=== PATIENT | female | born 1980 | race Caucasian/White ===

== ENCOUNTER 2022-07-01 11:38 | Inpatient (IN) | payer MEDICAID ==
[~2022-07-01] VITALS: Ht 165.1 cm; Wt 66.0 kg
[~2022-07-01 11:38] MED LIST: DIVA500T53 PO; MELA5TAB40 PO; NALT50TA PO; OLAN5TAB94 PO; OMEG-135 PO
[2022-07-01] MEDS ORDERED: HALOPERIDOL LACTATE 5 MG/ML VIAL ONE (12:15)
[2022-07-01] MEDS ORDERED: DiphenhydrAMINE HCL 50 MG/ML VIAL ONE (12:15)
[2022-07-01] MEDS ORDERED: HALOPERIDOL LACTATE 5 MG/ML VIAL IM ONE (12:15)
[2022-07-01] MEDS ORDERED: LORazepam 2 MG/ML VIAL ONE (12:15)
[2022-07-01] MEDS ORDERED: DiphenhydrAMINE HCL 50 MG/ML VIAL IM ONE (12:15)
[2022-07-01] MEDS ORDERED: LORazepam 2 MG/ML VIAL IM ONE (12:15)
[2022-07-01 15:44] LABS: EOSINOPHILS % (AUTO) 1.8 % (1.0-6.0); HEMATOCRIT 35.5 % (36-46); HEMOGLOBIN 11.3 g/dL (12.0-16.0); LYMPHOCYTES # (AUTO) 1.4 K/uL (1.0-4.8); LYMPHOCYTES % (AUTO) 16.9 % (22.0-44.0); MEAN CORPUSCULAR HEMOGLOBIN 27.3 pg (26.0-34.0); MEAN CORPUSCULAR HGB CONC 31.9 G/dL (31.0-37.0); MEAN CORPUSCULAR VOLUME 86 fL (80-100); MONOCYTES # (AUTO) 0.7 K/uL (0.1-1.0); MONOCYTES % (AUTO) 8.2 % (2.0-9.0); NEUTROPHILS # (AUTO) 5.9 K/uL (1.8-7.7); NEUTROPHILS % (AUTO) 71.1 % (40.0-70.0); PLATELET COUNT (AUTO) 115 K/uL (150-450); RED BLOOD CELL COUNT(AUTO) 4.15 MIL/uL (4.00-5.20); RED CELL DISTRIBUTION WIDTH 14.5 % (11.5-14.5)
[2022-07-01 15:56] LABS: ANION GAP 9 mmol/L (8-16); CALCIUM, TOTAL 8.7 mg/dL (8.8-10.5); CARBON DIOXIDE 28 mmol/L (22-29); CHLORIDE 105 mmol/L (98-107); GLUCOSE,RANDOM 93 mg/dL (70-110); SODIUM SERUM 142 mmol/L (136-145); UREA NITROGEN, BLOOD 8 mg/dL (7-18)
[2022-07-01 15:57] LABS: GLOMERULAR FILTR. RATE CALC > 60 mL/min (>60)
[2022-07-01 16:02] LABS: ALANINE AMINOTRANSFERASE 25 U/L (12-78); ALBUMIN 3.6 g/dL (3.4-5.0); ALKALINE PHOSPHATASE 60 U/L (46-116); ASPARTATE AMINOTRANSFERASE 26 U/L (15-37); BILIRUBIN,TOTAL 0.4 mg/dL (0.1-1.0); TOTAL PROTEIN, SERUM 7.1 g/dL (6.4-8.2)
[2022-07-01] MEDS ORDERED: OLANZapine 5 MG RAPDIS TABLET PO PRN (19:15)
[2022-07-02 07:50] LABS: COVID AG,FIA SOURCE NASAL SWAB
[2022-07-02] MEDS: DIVALPROEX SODIUM 500 MG ER TABLET PO SCH (20:33)
[2022-07-03] MEDS: OLANZapine 5 MG RAPDIS TABLET PO SCH ×2 (09:00→16:28)
[2022-07-03] MEDS: DIVALPROEX SODIUM 500 MG ER TABLET PO SCH (20:26)
[2022-07-04 08:11] VITALS: BP 118/72
[2022-07-04] MEDS: OLANZapine 5 MG RAPDIS TABLET PO SCH ×2 (09:00→16:56)
[2022-07-04] MEDS ORDERED: PALIPERIDONE PALMITATE 234 MG/1.5 ML SYRINGE IM ONE (15:15)
[2022-07-04] MEDS ORDERED: PROMETHAZINE HCL 25 MG TABLET PO PRN (15:15)
[2022-07-04] MEDS ORDERED: GuaiFENesin/D-METHORPHAN [SUGAR-FREE] 200-20MG/10 ML SYRUP UDCUP PO PRN (15:15)
[2022-07-04] MEDS ORDERED: MAG HYDROX/AL HYDROX/SIMETH ES 30 ML SUSPENSION UDCUP PO PRN (15:15)
[2022-07-04] MEDS ORDERED: HydrOXYzine PAMOATE 50 MG CAPSULE PO PRN (15:15)
[2022-07-04] MEDS ORDERED: LOPERAMIDE HCL 2 MG CAPSULE PO PRN (15:15)
[2022-07-04] MEDS ORDERED: MAGNESIUM HYDROXIDE SUSPENSION 30 ML UDCUP PO PRN (15:15)
[2022-07-04] MEDS: THIAMINE 100 MG TABLET PO SCH (17:00)
[2022-07-04] MEDS: DIVALPROEX SODIUM 500 MG ER TABLET PO SCH (20:27)
[2022-07-05 08:23] VITALS: BP 116/78
[2022-07-05] MEDS: OLANZapine 5 MG RAPDIS TABLET PO SCH ×2 (09:00→16:57)
[2022-07-05] MEDS: FOLIC ACID 1 MG TABLET PO SCH (09:00)
[2022-07-05] MEDS: MULTIVITAMINS WITH MINERALS, THERAPEUTIC TABLET PO SCH (09:00)
[2022-07-05] MEDS: THIAMINE 100 MG TABLET PO SCH ×2 (09:00→16:57)
[2022-07-05] MEDS: DIVALPROEX SODIUM 500 MG ER TABLET PO SCH (21:00)
[2022-07-06] MEDS: FOLIC ACID 1 MG TABLET PO SCH (08:27)
[2022-07-06] MEDS: THIAMINE 100 MG TABLET PO SCH ×2 (08:27→16:22)
[2022-07-06] MEDS: MULTIVITAMINS WITH MINERALS, THERAPEUTIC TABLET PO SCH (08:27)
[2022-07-06] MEDS: OLANZapine 5 MG RAPDIS TABLET PO SCH ×2 (08:27→16:22)
[2022-07-06] MEDS: DIVALPROEX SODIUM 500 MG ER TABLET PO SCH (20:19)
[2022-07-07 08:05] VITALS: BP 114/69
[2022-07-07] MEDS: OLANZapine 5 MG RAPDIS TABLET PO SCH ×2 (08:06→16:58)
[2022-07-07] MEDS: MULTIVITAMINS WITH MINERALS, THERAPEUTIC TABLET PO SCH (08:06)
[2022-07-07] MEDS: FOLIC ACID 1 MG TABLET PO SCH (08:06)
[2022-07-07] MEDS: THIAMINE 100 MG TABLET PO SCH ×2 (08:06→16:58)
[2022-07-07 20:03] VITALS: BP 118/66
[2022-07-07] MEDS: DIVALPROEX SODIUM 500 MG ER TABLET PO SCH (21:00)
[2022-07-08] MEDS: MULTIVITAMINS WITH MINERALS, THERAPEUTIC TABLET PO SCH (09:00)
[2022-07-08] MEDS ORDERED: PALIPERIDONE PALMITATE 156 MG/ML SYRINGE IM ONE (09:00)
[2022-07-08] MEDS: OLANZapine 5 MG RAPDIS TABLET PO SCH ×4 (09:00→20:19)
[2022-07-08] MEDS: FOLIC ACID 1 MG TABLET PO SCH (09:00)
[2022-07-08] MEDS: THIAMINE 100 MG TABLET PO SCH ×2 (09:00→17:00)
[2022-07-08] MEDS ORDERED: HALOPERIDOL LACTATE 5 MG/ML VIAL IM PRN (10:15)
[2022-07-08] MEDS: DIVALPROEX SODIUM 250 MG ER TABLET PO SCH ×3 (12:37→20:19)
[2022-07-09 08:14] VITALS: BP 106/72
[2022-07-09] MEDS: DIVALPROEX SODIUM 250 MG ER TABLET PO SCH ×4 (08:30→20:29)
[2022-07-09] MEDS: OLANZapine 5 MG RAPDIS TABLET PO SCH ×4 (08:31→20:30)
[2022-07-09] MEDS: THIAMINE 100 MG TABLET PO SCH ×2 (09:00→16:23)
[2022-07-09] MEDS: MULTIVITAMINS WITH MINERALS, THERAPEUTIC TABLET PO SCH (09:00)
[2022-07-09] MEDS: FOLIC ACID 1 MG TABLET PO SCH (09:00)
[2022-07-10 08:28] VITALS: BP 103/72
[2022-07-10] MEDS: DIVALPROEX SODIUM 250 MG ER TABLET PO SCH ×4 (08:43→20:14)
[2022-07-10] MEDS: OLANZapine 5 MG RAPDIS TABLET PO SCH ×4 (08:43→20:14)
[2022-07-10] MEDS: FOLIC ACID 1 MG TABLET PO SCH (08:43)
[2022-07-10] MEDS: THIAMINE 100 MG TABLET PO SCH ×2 (08:43→16:45)
[2022-07-10] MEDS: MULTIVITAMINS WITH MINERALS, THERAPEUTIC TABLET PO SCH (08:43)
[2022-07-11 08:07] VITALS: BP 110/66
[2022-07-11] MEDS: DIVALPROEX SODIUM 250 MG ER TABLET PO SCH ×4 (08:25→20:08)
[2022-07-11] MEDS: THIAMINE 100 MG TABLET PO SCH ×2 (08:25→16:58)
[2022-07-11] MEDS: MULTIVITAMINS WITH MINERALS, THERAPEUTIC TABLET PO SCH (08:25)
[2022-07-11] MEDS: FOLIC ACID 1 MG TABLET PO SCH (08:25)
[2022-07-11] MEDS: OLANZapine 5 MG RAPDIS TABLET PO SCH ×4 (08:26→20:08)
[2022-07-12 05:41] LABS: GLUCOMETER DEV NAME(LOC) POC.BV
[2022-07-12] MEDS: THIAMINE 100 MG TABLET PO SCH ×2 (09:03→18:01)
[2022-07-12] MEDS: DIVALPROEX SODIUM 250 MG ER TABLET PO SCH ×4 (09:04→20:35)
[2022-07-12] MEDS: OLANZapine 5 MG RAPDIS TABLET PO SCH ×4 (09:04→20:35)
[2022-07-12] MEDS: MULTIVITAMINS WITH MINERALS, THERAPEUTIC TABLET PO SCH (09:04)
[2022-07-12] MEDS: FOLIC ACID 1 MG TABLET PO SCH (09:04)
[2022-07-12] MEDS: ZOLPIDEM TARTRATE 10 MG TABLET PO PRN (20:35)
[2022-07-13] MEDS: DIVALPROEX SODIUM 250 MG ER TABLET PO SCH ×4 (08:41→20:14)
[2022-07-13] MEDS: OLANZapine 5 MG RAPDIS TABLET PO SCH ×4 (08:41→20:14)
[2022-07-13] MEDS: FOLIC ACID 1 MG TABLET PO SCH (08:41)
[2022-07-13] MEDS: THIAMINE 100 MG TABLET PO SCH ×2 (08:41→16:15)
[2022-07-13] MEDS: MULTIVITAMINS WITH MINERALS, THERAPEUTIC TABLET PO SCH (08:41)
[2022-07-13] MEDS: LORazepam 2 MG TABLET PO PRN (16:15)
[2022-07-13] MEDS: ACETAMINOPHEN 325 MG TABLET PO PRN ×2 (16:16→21:15)
[2022-07-13 16:21] VITALS: BP 122/78
[2022-07-13 20:19] VITALS: BP 124/78
[2022-07-13] MEDS: ZOLPIDEM TARTRATE 10 MG TABLET PO PRN (21:14)
[2022-07-14] MEDS: FOLIC ACID 1 MG TABLET PO SCH (08:08)
[2022-07-14] MEDS: MULTIVITAMINS WITH MINERALS, THERAPEUTIC TABLET PO SCH (08:08)
[2022-07-14] MEDS: OLANZapine 5 MG RAPDIS TABLET PO SCH ×4 (08:09→20:07)
[2022-07-14] MEDS: THIAMINE 100 MG TABLET PO SCH (08:09)
[2022-07-14] MEDS: DIVALPROEX SODIUM 250 MG ER TABLET PO SCH ×2 (08:09→13:20)
[2022-07-14] MEDS: LORazepam 2 MG TABLET PO PRN ×2 (08:14→12:32)
[2022-07-14] MEDS: ACETAMINOPHEN 325 MG TABLET PO PRN (10:29)
[2022-07-14] MEDS: VALPROIC ACID 250 MG/5 ML SOLUTION UDCUP PO SCH ×2 (17:35→20:07)
[2022-07-14] MEDS: ZOLPIDEM TARTRATE 10 MG TABLET PO PRN (20:07)
[2022-07-14] MEDS ORDERED: TUBERCULIN, PURIFIED PROTEIN DERIVATIVE 5 TU/0.1 ML SYRINGE ID ONE (22:15)
[2022-07-15] MEDS: LORazepam 2 MG TABLET PO PRN (08:21)
[2022-07-15] MEDS: MULTIVITAMINS WITH MINERALS, THERAPEUTIC TABLET PO SCH (08:21)
[2022-07-15] MEDS: OLANZapine 5 MG RAPDIS TABLET PO SCH ×4 (08:21→20:02)
[2022-07-15] MEDS: VALPROIC ACID 250 MG/5 ML SOLUTION UDCUP PO SCH ×4 (08:22→20:02)
[2022-07-15] MEDS: ACETAMINOPHEN 325 MG TABLET PO PRN ×3 (10:12→20:39)
[2022-07-15] MEDS: ZOLPIDEM TARTRATE 10 MG TABLET PO PRN (20:38)
[2022-07-16] MEDS: OLANZapine 5 MG RAPDIS TABLET PO SCH ×4 (08:33→20:06)
[2022-07-16] MEDS: MULTIVITAMINS WITH MINERALS, THERAPEUTIC TABLET PO SCH (08:33)
[2022-07-16] MEDS: VALPROIC ACID 250 MG/5 ML SOLUTION UDCUP PO SCH ×4 (08:39→20:06)
[2022-07-16] MEDS: ACETAMINOPHEN 325 MG TABLET PO PRN ×3 (09:11→20:14)
[2022-07-16] MEDS: LORazepam 2 MG TABLET PO PRN (15:03)
[2022-07-16] MEDS: ZOLPIDEM TARTRATE 10 MG TABLET PO PRN (20:14)
[2022-07-17] MEDS: VALPROIC ACID 250 MG/5 ML SOLUTION UDCUP PO SCH ×4 (08:15→20:02)
[2022-07-17] MEDS: MULTIVITAMINS WITH MINERALS, THERAPEUTIC TABLET PO SCH (08:15)
[2022-07-17] MEDS: OLANZapine 5 MG RAPDIS TABLET PO SCH ×4 (08:15→20:02)
[2022-07-17] MEDS: ACETAMINOPHEN 325 MG TABLET PO PRN ×2 (16:11→20:16)
[2022-07-17] MEDS: ZOLPIDEM TARTRATE 10 MG TABLET PO PRN (20:03)
[2022-07-18] MEDS: ACETAMINOPHEN 325 MG TABLET PO PRN ×3 (07:58→20:17)
[2022-07-18] MEDS: OLANZapine 5 MG RAPDIS TABLET PO SCH ×4 (08:00→20:17)
[2022-07-18] MEDS: MULTIVITAMINS WITH MINERALS, THERAPEUTIC TABLET PO SCH (08:00)
[2022-07-18] MEDS: VALPROIC ACID 250 MG/5 ML SOLUTION UDCUP PO SCH ×4 (08:00→20:16)
[2022-07-18] MEDS: LORazepam 2 MG TABLET PO PRN (16:58)
[2022-07-18] MEDS: ZOLPIDEM TARTRATE 10 MG TABLET PO PRN (20:17)
[2022-07-19] MEDS: VALPROIC ACID 250 MG/5 ML SOLUTION UDCUP PO SCH ×4 (07:58→20:04)
[2022-07-19] MEDS: OLANZapine 5 MG RAPDIS TABLET PO SCH ×4 (07:58→20:05)
[2022-07-19] MEDS: MULTIVITAMINS WITH MINERALS, THERAPEUTIC TABLET PO SCH (07:58)
[2022-07-19 08:19] VITALS: BP 119/74
[2022-07-19] MEDS: ACETAMINOPHEN 325 MG TABLET PO PRN ×3 (09:06→18:09)
[2022-07-20 08:02] LABS: GLUCOMETER DEV NAME(LOC) POC.BV
[2022-07-20] MEDS: MULTIVITAMINS WITH MINERALS, THERAPEUTIC TABLET PO SCH (08:05)
[2022-07-20] MEDS: VALPROIC ACID 250 MG/5 ML SOLUTION UDCUP PO SCH ×4 (08:05→20:01)
[2022-07-20] MEDS: OLANZapine 5 MG RAPDIS TABLET PO SCH ×4 (08:05→20:05)
[2022-07-20] MEDS: LORazepam 2 MG TABLET PO PRN ×2 (08:06→16:04)
[2022-07-20] MEDS: ACETAMINOPHEN 325 MG TABLET PO PRN ×2 (09:09→16:04)
[2022-07-20] MEDS: IBUPROFEN 400 MG TABLET PO PRN (17:50)
[2022-07-20] MEDS: ZOLPIDEM TARTRATE 10 MG TABLET PO PRN (20:01)
[2022-07-21] MEDS: LORazepam 2 MG TABLET PO PRN ×2 (07:55→15:56)
[2022-07-21] MEDS: MULTIVITAMINS WITH MINERALS, THERAPEUTIC TABLET PO SCH (07:55)
[2022-07-21] MEDS: OLANZapine 5 MG RAPDIS TABLET PO SCH ×4 (07:57→21:49)
[2022-07-21] MEDS: VALPROIC ACID 250 MG/5 ML SOLUTION UDCUP PO SCH ×4 (07:58→20:57)
[2022-07-21] MEDS: IBUPROFEN 400 MG TABLET PO PRN ×2 (12:13→20:57)
[2022-07-21] MEDS: ACETAMINOPHEN 325 MG TABLET PO PRN (17:09)
[2022-07-21] MEDS: ZOLPIDEM TARTRATE 10 MG TABLET PO PRN (20:56)
[2022-07-22] MEDS: VALPROIC ACID 250 MG/5 ML SOLUTION UDCUP PO SCH ×4 (08:03→20:23)
[2022-07-22] MEDS: MULTIVITAMINS WITH MINERALS, THERAPEUTIC TABLET PO SCH (08:05)
[2022-07-22] MEDS: OLANZapine 5 MG RAPDIS TABLET PO SCH ×4 (08:05→20:23)
[2022-07-22] MEDS: LORazepam 2 MG TABLET PO PRN ×3 (08:47→20:24)
[2022-07-22] MEDS: IBUPROFEN 400 MG TABLET PO PRN ×2 (10:34→18:34)
[2022-07-22] MEDS: ACETAMINOPHEN 325 MG TABLET PO PRN (16:37)
[2022-07-22] MEDS: ZOLPIDEM TARTRATE 10 MG TABLET PO PRN (20:23)
[2022-07-23] MEDS: VALPROIC ACID 250 MG/5 ML SOLUTION UDCUP PO SCH ×4 (08:21→21:17)
[2022-07-23] MEDS: MULTIVITAMINS WITH MINERALS, THERAPEUTIC TABLET PO SCH (08:21)
[2022-07-23] MEDS: OLANZapine 5 MG RAPDIS TABLET PO SCH ×4 (08:22→21:17)
[2022-07-23] MEDS: IBUPROFEN 400 MG TABLET PO PRN ×2 (10:21→21:52)
[2022-07-23] MEDS: LORazepam 2 MG TABLET PO PRN ×2 (10:21→17:14)
[2022-07-23] MEDS: ACETAMINOPHEN 325 MG TABLET PO PRN ×2 (13:20→17:14)
[2022-07-23 20:29] VITALS: BP 118/63
[2022-07-23] MEDS: ZOLPIDEM TARTRATE 10 MG TABLET PO PRN (21:17)
[2022-07-24] MEDS: OLANZapine 5 MG RAPDIS TABLET PO SCH ×4 (07:57→21:18)
[2022-07-24] MEDS: MULTIVITAMINS WITH MINERALS, THERAPEUTIC TABLET PO SCH (07:57)
[2022-07-24] MEDS: VALPROIC ACID 250 MG/5 ML SOLUTION UDCUP PO SCH ×4 (07:57→21:18)
[2022-07-24] MEDS: LORazepam 2 MG TABLET PO PRN ×2 (07:57→16:32)
[2022-07-24] MEDS: IBUPROFEN 400 MG TABLET PO PRN (13:30)
[2022-07-24 21:26] VITALS: BP 118/70
[2022-07-24] MEDS: ACETAMINOPHEN 325 MG TABLET PO PRN (21:34)
[2022-07-25] MEDS: ZOLPIDEM TARTRATE 10 MG TABLET PO PRN ×2 (00:50→21:39)
[2022-07-25] MEDS: OLANZapine 5 MG RAPDIS TABLET PO SCH ×4 (08:08→20:22)
[2022-07-25] MEDS: MULTIVITAMINS WITH MINERALS, THERAPEUTIC TABLET PO SCH (08:08)
[2022-07-25] MEDS: VALPROIC ACID 250 MG/5 ML SOLUTION UDCUP PO SCH ×4 (08:08→20:22)
[2022-07-25] MEDS: ACETAMINOPHEN 325 MG TABLET PO PRN ×2 (08:11→18:31)
[2022-07-25] MEDS: LORazepam 2 MG TABLET PO PRN ×2 (08:40→15:54)
[2022-07-25] MEDS: IBUPROFEN 400 MG TABLET PO PRN (14:19)
[2022-07-26] MEDS: LORazepam 2 MG TABLET PO PRN ×3 (01:01→19:44)
[2022-07-26] MEDS: IBUPROFEN 400 MG TABLET PO PRN ×2 (01:02→16:26)
[2022-07-26] MEDS: OLANZapine 5 MG RAPDIS TABLET PO SCH ×4 (08:35→20:23)
[2022-07-26] MEDS: MULTIVITAMINS WITH MINERALS, THERAPEUTIC TABLET PO SCH (08:35)
[2022-07-26] MEDS: VALPROIC ACID 250 MG/5 ML SOLUTION UDCUP PO SCH ×4 (08:35→20:23)
[2022-07-26] MEDS: ACETAMINOPHEN 325 MG TABLET PO PRN (12:06)
[2022-07-26] MEDS: ZOLPIDEM TARTRATE 10 MG TABLET PO PRN (20:23)
[2022-07-27 08:08] LABS: GLUCOMETER DEV NAME(LOC) POC.BV
[2022-07-27] MEDS: MULTIVITAMINS WITH MINERALS, THERAPEUTIC TABLET PO SCH (08:10)
[2022-07-27] MEDS: VALPROIC ACID 250 MG/5 ML SOLUTION UDCUP PO SCH ×4 (08:10→20:02)
[2022-07-27] MEDS: OLANZapine 5 MG RAPDIS TABLET PO SCH ×4 (08:11→20:02)
[2022-07-27 08:13] VITALS: BP 118/69
[2022-07-27] MEDS: IBUPROFEN 400 MG TABLET PO PRN ×2 (08:55→19:50)
[2022-07-27] MEDS: LORazepam 2 MG TABLET PO PRN ×2 (08:55→15:56)
[2022-07-27] MEDS: ACETAMINOPHEN 325 MG TABLET PO PRN (17:13)
[2022-07-27] MEDS: ZOLPIDEM TARTRATE 10 MG TABLET PO PRN (20:01)
[2022-07-28] MEDS: VALPROIC ACID 250 MG/5 ML SOLUTION UDCUP PO SCH ×4 (08:04→20:29)
[2022-07-28] MEDS: MULTIVITAMINS WITH MINERALS, THERAPEUTIC TABLET PO SCH (08:04)
[2022-07-28] MEDS: LORazepam 2 MG TABLET PO PRN ×2 (08:04→17:11)
[2022-07-28] MEDS: OLANZapine 5 MG RAPDIS TABLET PO SCH ×4 (08:04→20:29)
[2022-07-28] MEDS: IBUPROFEN 400 MG TABLET PO PRN ×2 (08:04→20:41)
[2022-07-28] MEDS: ZOLPIDEM TARTRATE 10 MG TABLET PO PRN (20:29)
[2022-07-29] MEDS: OLANZapine 5 MG RAPDIS TABLET PO SCH ×4 (08:21→20:01)
[2022-07-29] MEDS: MULTIVITAMINS WITH MINERALS, THERAPEUTIC TABLET PO SCH (08:21)
[2022-07-29] MEDS: VALPROIC ACID 250 MG/5 ML SOLUTION UDCUP PO SCH ×4 (08:22→20:01)
[2022-07-29] MEDS: IBUPROFEN 400 MG TABLET PO PRN ×2 (08:22→17:27)
[2022-07-29] MEDS: LORazepam 2 MG TABLET PO PRN ×2 (08:22→20:01)
[2022-07-29] MEDS: ZOLPIDEM TARTRATE 10 MG TABLET PO PRN (21:31)
[2022-07-30] MEDS: LORazepam 2 MG TABLET PO PRN ×3 (00:09→20:28)
[2022-07-30] MEDS: MULTIVITAMINS WITH MINERALS, THERAPEUTIC TABLET PO SCH (08:19)
[2022-07-30] MEDS: OLANZapine 5 MG RAPDIS TABLET PO SCH ×4 (08:19→20:03)
[2022-07-30] MEDS: VALPROIC ACID 250 MG/5 ML SOLUTION UDCUP PO SCH ×4 (08:19→20:03)
[2022-07-30] MEDS: IBUPROFEN 400 MG TABLET PO PRN (13:30)
[2022-07-30] MEDS: ZOLPIDEM TARTRATE 10 MG TABLET PO PRN (21:57)
[2022-07-31] MEDS: OLANZapine 5 MG RAPDIS TABLET PO SCH ×4 (08:05→20:09)
[2022-07-31] MEDS: LORazepam 2 MG TABLET PO PRN ×2 (08:05→14:28)
[2022-07-31] MEDS: VALPROIC ACID 250 MG/5 ML SOLUTION UDCUP PO SCH ×4 (08:05→20:09)
[2022-07-31] MEDS: MULTIVITAMINS WITH MINERALS, THERAPEUTIC TABLET PO SCH (08:05)
[2022-07-31] MEDS: IBUPROFEN 400 MG TABLET PO PRN (19:37)
[2022-07-31] MEDS: ZOLPIDEM TARTRATE 10 MG TABLET PO PRN (20:29)
[2022-08-01 07:16] LABS: BASOPHILS % (AUTO) 1.1 % (0.0-2.0); EOSINOPHILS % (AUTO) 4.6 % (1.0-6.0); HEMATOCRIT 34.7 % (36-46); HEMOGLOBIN 11.2 g/dL (12.0-16.0); LYMPHOCYTES # (AUTO) 1.6 K/uL (1.0-4.8); LYMPHOCYTES % (AUTO) 16.5 % (22.0-44.0); MEAN CORPUSCULAR HEMOGLOBIN 27.6 pg (26.0-34.0); MEAN CORPUSCULAR HGB CONC 32.4 G/dL (31.0-37.0); MEAN CORPUSCULAR VOLUME 85 fL (80-100); MONOCYTES % (AUTO) 10.7 % (2.0-9.0); NEUTROPHILS # (AUTO) 6.5 K/uL (1.8-7.7); NEUTROPHILS % (AUTO) 67.1 % (40.0-70.0); RED BLOOD CELL COUNT(AUTO) 4.08 MIL/uL (4.00-5.20); RED CELL DISTRIBUTION WIDTH 15.3 % (11.5-14.5)
[2022-08-01 07:44] LABS: ALANINE AMINOTRANSFERASE 30 U/L (12-78); ALBUMIN 3.8 g/dL (3.4-5.0); ALKALINE PHOSPHATASE 50 U/L (46-116); ANION GAP 6 mmol/L (8-16); ASPARTATE AMINOTRANSFERASE 14 U/L (15-37); BILIRUBIN,TOTAL 0.2 mg/dL (0.1-1.0); CALCIUM, TOTAL 8.8 mg/dL (8.8-10.5); CARBON DIOXIDE 28 mmol/L (22-29); CHLORIDE 104 mmol/L (98-107); GLUCOSE,RANDOM 94 mg/dL (70-110); POTASSIUM 4.6 mmol/L (3.5-5.1); SODIUM SERUM 138 mmol/L (136-145); TOTAL PROTEIN, SERUM 7.1 g/dL (6.4-8.2); UREA NITROGEN, BLOOD 16 mg/dL (7-18); VALPROIC ACID 35 mcg/mL (50-100)
[2022-08-01 07:45] LABS: C-REACTIVE PROTEIN QUANT < 0.05 mg/dL (0.00-0.30); GLOMERULAR FILTR. RATE CALC > 60 mL/min (>60)
[2022-08-01] MEDS: VALPROIC ACID 250 MG/5 ML SOLUTION UDCUP PO SCH ×2 (08:00→12:11)
[2022-08-01] MEDS: OLANZapine 5 MG RAPDIS TABLET PO SCH ×4 (08:00→20:03)
[2022-08-01] MEDS: MULTIVITAMINS WITH MINERALS, THERAPEUTIC TABLET PO SCH (08:00)
[2022-08-01 08:02] LABS: PLATELET COUNT (AUTO) 58 K/uL (150-450)
[2022-08-01 08:03] LABS: PLATELET MORPHOLOGY COMMENT LARGE PLTS PRESENT
[2022-08-01] MEDS: LORazepam 2 MG TABLET PO PRN ×3 (08:23→21:30)
[2022-08-01 08:48] LABS: ERYTHROCYTE SEDIMENTATION RATE 8 MM/HR (0-20)
[2022-08-01] MEDS: IBUPROFEN 400 MG TABLET PO PRN ×2 (11:10→18:11)
[2022-08-01] MEDS: ACETAMINOPHEN 325 MG TABLET PO PRN ×2 (15:35→20:04)
[2022-08-01] MEDS ORDERED: VALPROIC ACID 250 MG/5 ML SOLUTION UDCUP PO SCH (17:00)
[2022-08-01] MEDS: ZOLPIDEM TARTRATE 10 MG TABLET PO PRN (20:03)
[2022-08-02] MEDS: OLANZapine 5 MG RAPDIS TABLET PO SCH ×4 (08:00→20:13)
[2022-08-02] MEDS: MULTIVITAMINS WITH MINERALS, THERAPEUTIC TABLET PO SCH (08:00)
[2022-08-02] MEDS: VALPROIC ACID 250 MG/5 ML SOLUTION UDCUP PO SCH ×3 (08:01→16:04)
[2022-08-02] MEDS: LORazepam 2 MG TABLET PO PRN ×2 (09:14→16:53)
[2022-08-02] MEDS: IBUPROFEN 400 MG TABLET PO PRN ×3 (12:59→22:30)
[2022-08-02] MEDS: ZOLPIDEM TARTRATE 10 MG TABLET PO PRN (21:07)
[2022-08-03 08:10] LABS: GLUCOMETER DEV NAME(LOC) POC.BV
[2022-08-03] MEDS: VALPROIC ACID 250 MG/5 ML SOLUTION UDCUP PO SCH ×3 (08:11→16:03)
[2022-08-03] MEDS: OLANZapine 5 MG RAPDIS TABLET PO SCH ×4 (08:11→20:01)
[2022-08-03] MEDS: MULTIVITAMINS WITH MINERALS, THERAPEUTIC TABLET PO SCH (08:11)
[2022-08-03 08:46] VITALS: BP 111/71
[2022-08-03] MEDS: LORazepam 2 MG TABLET PO PRN (11:07)
[2022-08-03] MEDS: IBUPROFEN 400 MG TABLET PO PRN (14:30)
[2022-08-03] MEDS: ZOLPIDEM TARTRATE 10 MG TABLET PO PRN (20:03)
[2022-08-04] MEDS: MULTIVITAMINS WITH MINERALS, THERAPEUTIC TABLET PO SCH (08:03)
[2022-08-04] MEDS: VALPROIC ACID 250 MG/5 ML SOLUTION UDCUP PO SCH ×3 (08:03→16:06)
[2022-08-04] MEDS: OLANZapine 5 MG RAPDIS TABLET PO SCH ×4 (08:03→20:26)
[2022-08-04] MEDS: LORazepam 2 MG TABLET PO PRN ×2 (08:05→16:21)
[2022-08-04] MEDS: IBUPROFEN 400 MG TABLET PO PRN (16:21)
[2022-08-04] MEDS: ZOLPIDEM TARTRATE 10 MG TABLET PO PRN (20:26)
[2022-08-05] MEDS: LORazepam 2 MG TABLET PO PRN ×4 (08:09→22:00)
[2022-08-05] MEDS: VALPROIC ACID 250 MG/5 ML SOLUTION UDCUP PO SCH ×3 (08:09→16:09)
[2022-08-05] MEDS: MULTIVITAMINS WITH MINERALS, THERAPEUTIC TABLET PO SCH (08:09)
[2022-08-05] MEDS: OLANZapine 5 MG RAPDIS TABLET PO SCH ×4 (08:11→20:31)
[2022-08-05 12:40] VITALS: BP 111/71
[2022-08-05] MEDS: IBUPROFEN 400 MG TABLET PO PRN ×2 (16:11→23:26)
[2022-08-05] MEDS: ZOLPIDEM TARTRATE 10 MG TABLET PO PRN (21:07)
[2022-08-06] MEDS: MULTIVITAMINS WITH MINERALS, THERAPEUTIC TABLET PO SCH (08:04)
[2022-08-06] MEDS: OLANZapine 5 MG RAPDIS TABLET PO SCH ×4 (08:04→20:13)
[2022-08-06] MEDS: VALPROIC ACID 250 MG/5 ML SOLUTION UDCUP PO SCH ×3 (08:05→16:21)
[2022-08-06] MEDS: LORazepam 2 MG TABLET PO PRN ×4 (08:37→22:41)
[2022-08-06] MEDS: IBUPROFEN 400 MG TABLET PO PRN ×2 (10:55→20:13)
[2022-08-06] MEDS: ACETAMINOPHEN 325 MG TABLET PO PRN ×2 (18:02→18:06)
[2022-08-06] MEDS: ZOLPIDEM TARTRATE 10 MG TABLET PO PRN (20:12)
[2022-08-07] MEDS: ACETAMINOPHEN 325 MG TABLET PO PRN ×2 (01:33→21:53)
[2022-08-07] MEDS: MULTIVITAMINS WITH MINERALS, THERAPEUTIC TABLET PO SCH (08:56)
[2022-08-07] MEDS: OLANZapine 5 MG RAPDIS TABLET PO SCH ×4 (08:56→20:40)
[2022-08-07] MEDS: VALPROIC ACID 250 MG/5 ML SOLUTION UDCUP PO SCH ×3 (09:00→16:10)
[2022-08-07] MEDS: IBUPROFEN 400 MG TABLET PO PRN ×2 (11:01→20:41)
[2022-08-07] MEDS: LORazepam 2 MG TABLET PO PRN ×2 (16:35→22:46)
[2022-08-07 20:09] VITALS: BP 128/86
[2022-08-07] MEDS: ZOLPIDEM TARTRATE 10 MG TABLET PO PRN (20:40)
[2022-08-07 22:44] VITALS: BP 126/84
[2022-08-08 03:44] VITALS: BP 107/76
[2022-08-08] MEDS: ACETAMINOPHEN 325 MG TABLET PO PRN (03:45)
[2022-08-08] MEDS: LORazepam 2 MG TABLET PO PRN ×2 (03:45→15:07)
[2022-08-08 08:14] VITALS: BP 109/74
[2022-08-08] MEDS: MULTIVITAMINS WITH MINERALS, THERAPEUTIC TABLET PO SCH (08:31)
[2022-08-08] MEDS: OLANZapine 5 MG RAPDIS TABLET PO SCH ×4 (08:31→20:17)
[2022-08-08] MEDS: VALPROIC ACID 250 MG/5 ML SOLUTION UDCUP PO SCH ×3 (08:31→16:40)
[2022-08-08] MEDS ORDERED: NALT50TA PO (11:37)
[2022-08-08] MEDS ORDERED: VALP250S23 PO (11:37)
[2022-08-08] MEDS ORDERED: OLAN5TAB94 PO (11:37)
[2022-08-08] MEDS ORDERED: MELA5TAB40 PO (11:37)
[2022-08-08] MEDS: IBUPROFEN 400 MG TABLET PO PRN (17:49)
[2022-08-08 20:02] VITALS: BP 106/61
[2022-08-08] MEDS: ZOLPIDEM TARTRATE 10 MG TABLET PO PRN (20:17)
[2022-08-09] MEDS: LORazepam 2 MG TABLET PO PRN ×4 (00:08→22:39)
[2022-08-09] MEDS: ACETAMINOPHEN 325 MG TABLET PO PRN ×3 (00:08→21:23)
[2022-08-09] MEDS: VALPROIC ACID 250 MG/5 ML SOLUTION UDCUP PO SCH ×3 (08:49→16:09)
[2022-08-09] MEDS: MULTIVITAMINS WITH MINERALS, THERAPEUTIC TABLET PO SCH (08:49)
[2022-08-09] MEDS: OLANZapine 5 MG RAPDIS TABLET PO SCH ×4 (08:50→20:05)
[2022-08-09] MEDS: IBUPROFEN 400 MG TABLET PO PRN ×2 (09:15→17:26)
[2022-08-09 11:46] VITALS: BP 108/63
[2022-08-09 20:03] VITALS: BP 117/75
[2022-08-09] MEDS: ZOLPIDEM TARTRATE 10 MG TABLET PO PRN (20:50)
[2022-08-10 02:03] VITALS: BP 122/76
[2022-08-10] MEDS: IBUPROFEN 400 MG TABLET PO PRN ×3 (02:19→20:13)
[2022-08-10] MEDS: VALPROIC ACID 250 MG/5 ML SOLUTION UDCUP PO SCH ×3 (08:22→16:13)
[2022-08-10] MEDS: MULTIVITAMINS WITH MINERALS, THERAPEUTIC TABLET PO SCH (08:22)
[2022-08-10] MEDS: OLANZapine 5 MG RAPDIS TABLET PO SCH ×4 (08:22→20:13)
[2022-08-10] MEDS: LORazepam 2 MG TABLET PO PRN ×2 (09:02→20:13)
[2022-08-10 20:06] VITALS: BP 106/69
[2022-08-10] MEDS: ZOLPIDEM TARTRATE 10 MG TABLET PO PRN (21:25)
[2022-08-10] MEDS: ACETAMINOPHEN 325 MG TABLET PO PRN (23:57)
[2022-08-11 04:46] LABS: GLUCOMETER DEV NAME(LOC) POC.BV
[2022-08-11] MEDS: OLANZapine 5 MG RAPDIS TABLET PO SCH ×4 (07:49→21:07)
[2022-08-11] MEDS: VALPROIC ACID 250 MG/5 ML SOLUTION UDCUP PO SCH ×3 (07:51→18:11)
[2022-08-11] MEDS: MULTIVITAMINS WITH MINERALS, THERAPEUTIC TABLET PO SCH (07:51)
[2022-08-11] MEDS: IBUPROFEN 400 MG TABLET PO PRN ×2 (07:51→21:07)
[2022-08-11] MEDS: BENZOCAINE/MENTHOL/ZINC CL 20% 11.9 GM GEL TP PRN (08:10)
[2022-08-11 08:24] LABS: BASOPHILS % (AUTO) 1.7 % (0.0-2.0); EOSINOPHILS % (AUTO) 4.5 % (1.0-6.0); HEMATOCRIT 35.9 % (36-46); HEMOGLOBIN 11.7 g/dL (12.0-16.0); LYMPHOCYTES % (AUTO) 21.6 % (22.0-44.0); MEAN CORPUSCULAR HEMOGLOBIN 27.9 pg (26.0-34.0); MEAN CORPUSCULAR HGB CONC 32.6 G/dL (31.0-37.0); MEAN CORPUSCULAR VOLUME 86 fL (80-100); MONOCYTES # (AUTO) 0.8 K/uL (0.1-1.0); MONOCYTES % (AUTO) 9.4 % (2.0-9.0); NEUTROPHILS # (AUTO) 5.7 K/uL (1.8-7.7); NEUTROPHILS % (AUTO) 62.8 % (40.0-70.0); PLATELET COUNT (AUTO) 56 K/uL (150-450); RED CELL DISTRIBUTION WIDTH 15.8 % (11.5-14.5)
[2022-08-11 08:53] VITALS: BP 112/69
[2022-08-11] MEDS: LORazepam 2 MG TABLET PO PRN ×2 (12:37→21:06)
[2022-08-11] MEDS: ZOLPIDEM TARTRATE 10 MG TABLET PO PRN (21:06)
[2022-08-12 08:01] LABS: GLUCOMETER DEV NAME(LOC) POC.BV
[2022-08-12 08:15] VITALS: BP 109/75
[2022-08-12] MEDS: MULTIVITAMINS WITH MINERALS, THERAPEUTIC TABLET PO SCH (08:45)
[2022-08-12] MEDS: VALPROIC ACID 250 MG/5 ML SOLUTION UDCUP PO SCH (08:45)
[2022-08-12] MEDS: OLANZapine 5 MG RAPDIS TABLET PO SCH (08:45)
[2022-08-12] MEDS: BENZOCAINE/MENTHOL/ZINC CL 20% 11.9 GM GEL TP PRN (08:46)
== END 2022-08-12 09:10 | DRG 750 ==
LOC: EDBD 11:40 → EMS 11:40 → B3A 07-02 11:20 → UNDODISIN 08-12 12:15
PROVIDERS: ADMIT Psychiatry & Neurology Psychiatry; ATTEND Psychiatry & Neurology Psychiatry
DX: F25.0 Schizoaffective disorder, bipolar type (principal); D69.6 Thrombocytopenia, unspecified; D64.9 Anemia, unspecified; E87.6 Hypokalemia; Z20.822 Contact with and (suspected) exposure to COVID-19; Z60.8 Other problems related to social environment; Z55.9 Problems related to education and literacy, unspecified; Z59.00 Homelessness unspecified; Z63.9 Problem related to primary support group, unspecified; Z65.3 Problems related to other legal circumstances; Z74.01 Bed confinement status; Z78.1 Physical restraint status; Z85.6 Personal history of leukemia; Z91.199 Patient's noncompliance with other medical treatment and regimen due to unspecified reason
CPT/HCPCS: 71046; 80053; 80164; 85025; 85651; 86140; 99285; G0480; J1200; J1630; J2060; 36415-L1; 36415-TC